=== PATIENT | female | born 1985 | race Two or more races ===

== ENCOUNTER → 2024-08-29 | Outpatient (CLI) | payer BC, SELFPAY ==
--- NOTE | 2024-08-29 10:00 | XR_ITS ---
Examination: Breast ultrasound, unilateral, left complete Date and time of exam: August 29, 2024 1004 hours INDICATIONS: Mammogram February 12, 2024 21 mm mass 12:00 position left breast Technique: Real-time good scale ultrasonographic imaging performed left breast including all 4 quadrants as well as nipple retroareolar and axillary region. Findings: 12:00 cyst 8 x 3 x 8 mm No solid nodules,. Dilated ducts throughout the breasts IMPRESSION: BI-RADS Category 2: Benign findings
--- NOTE | 2024-08-29 10:30 | XR_ITS ---
Examination: Diagnostic digital mammography, unilateral, LEFT Computer aided detection 3-D breast Tomosynthesis, unilateral Date and time of exam: August 29, 2024 1011 hours INDICATIONS: Mammogram February 12, 2024 21 mm mass 12:00 position left breast Technique: Nonmagnified MLO, CC views of the left breast have been obtained, reconstructed from 3-D Tomosynthesis images. R2 computer aided detection program utilized for evaluation of suspicious masses and/or abnormal calcifications. 3-D Tomosynthesis images obtained. Findings: The breast is heterogeneously dense, which may obscure small masses No suspicious mass is depicted on the spot compression views, please see the left breast sonogram report today indicating 12:00 cyst Impression: BI-RADS category 2: Benign findings Recommend yearly follow-up mammography
== END | disposition home or self-care (01) ==
LOC: CDIM 09:32
PROVIDERS: PCP Family Medicine; Referring Provider Physician Assistant Medical; Visit Provider Physician Assistant Medical
DX: R92.322 Mammographic fibroglandular density, left breast (principal); N60.02 Solitary cyst of left breast
CPT/HCPCS: 76641; 77061; 77065; G0279